=== PATIENT | female | born 1995 | race Caucasian/White ===

== ENCOUNTER 2019-05-23 20:45 | Emergency (ER) | payer OTHER ==
[~2019-05-23] VITALS: Ht 175.3 cm; Wt 115.7 kg
[2019-05-23] MEDS ORDERED: Amoxicillin500 MG PO (21:06)
== END 2019-05-23 21:30 | disposition home or self-care (01) ==
LOC: ER 20:45
DX: O99.512 Diseases of the respiratory system complicating pregnancy, second trimester (principal); J02.9 Acute pharyngitis, unspecified; Z3A.21 21 weeks gestation of pregnancy
CPT/HCPCS: 87081; 87430; 99283

== ENCOUNTER → 2020-10-27 | Outpatient (CLI) | payer OTHER ==
[~2020-10-27] MED LIST: Amoxicillin500 MG PO; PRENATAL TABLE1 EAC2 PO; PROM25 PO
== END | disposition home or self-care (01) ==
LOC: LAB 19:00 → LAB SHORT 19:00
DX: N39.0 Urinary tract infection, site not specified (principal)
CPT/HCPCS: 87086